=== PATIENT | female | born 1980 | race Caucasian/White ===

== ENCOUNTER 2020-03-10 08:09 | Outpatient (CLI) | payer BC, SELFPAY ==
[2020-03-10 09:26] LABS: Alanine Aminotransferase 26 U/L (14-59); Albumin Level 3.3 g/dL (3.4-5.0); Alkaline Phosphatase 84 U/L (46-116); Anion Gap 8 mmol/L (8-16); Aspartate Amino Transferase 18 U/L (15-37); Bilirubin,Total 0.3 mg/dL (0.00-1.00); Blood Urea Nitrogen 11 mg/dL (7-18); Calcium 8.4 mg/dL (8.5-10.1); Carbon Dioxide 27 mmol/L (21-32); Chloride 104 mmol/L (98-108); Cholesterol 199 mg/dL (0-200); Estimated Glomerular Filt Rate > 60; Glucose 96 mg/dL (70-99); HDL Direct 59 mg/dL (40-60); LDL Cholesterol Calculated 108 mg/dL (<130); Osmolality Calculated 287 mOsm/kg (285-295); Potassium 4.1 mmol/L (3.5-5.1); Sodium 139 mmol/L (136-145); Thyroid Stimulating Hormone 1.32 uIU/mL (0.36-3.74); Total Protein 7.1 g/dL (6.4-8.2); Triglycerides 162 mg/dL (0-150)
== END 2020-03-10 08:10 | disposition home or self-care (01) ==
LOC: CHSLAB 08:13
PROVIDERS: PCP Internal Medicine; Visit Provider Internal Medicine
DX: Z00.00 Encounter for general adult medical examination without abnormal findings (principal)
CPT/HCPCS: 36415; 80053; 80061; 84443

== ENCOUNTER 2021-03-11 07:13 | Outpatient (CLI) | payer BC, SELFPAY ==
[2021-03-11 13:31] LABS: Alanine Aminotransferase 27 U/L (14-59); Albumin Level 3.3 g/dL (3.4-5.0); Alkaline Phosphatase 81 U/L (46-116); Anion Gap 12 mmol/L (8-16); Aspartate Amino Transferase 16 U/L (15-37); Bilirubin,Total 0.2 mg/dL (0.00-1.00); Blood Urea Nitrogen 11 mg/dL (7-18); Calcium 8.2 mg/dL (8.5-10.1); Carbon Dioxide 23 mmol/L (21-32); Chloride 107 mmol/L (98-108); Cholesterol 176 mg/dL (0-200); Estimated Glomerular Filt Rate > 60; Glucose 94 mg/dL (70-99); HDL Direct 52 mg/dL (40-60); LDL Cholesterol Calculated 89 mg/dL (<130); Osmolality Calculated 293 mOsm/kg (285-295); Potassium 3.9 mmol/L (3.5-5.1); Sodium 142 mmol/L (136-145); Thyroid Stimulating Hormone 2.22 uIU/mL (0.36-3.74); Total Protein 6.7 g/dL (6.4-8.2); Triglycerides 177 mg/dL (0-150)
== END 2021-03-11 07:14 | disposition home or self-care (01) ==
LOC: CHSLAB 07:16
PROVIDERS: PCP Internal Medicine; Visit Provider Internal Medicine
DX: Z00.00 Encounter for general adult medical examination without abnormal findings (principal)
CPT/HCPCS: 36415; 80053; 80061; 84443

== ENCOUNTER 2022-03-06 06:59 | Outpatient (CLI) | payer BC, SELFPAY ==
[2022-03-06 07:38] LABS: Alanine Aminotransferase 24 U/L (14-59); Albumin Level 3.3 g/dL (3.4-5.0); Alkaline Phosphatase 72 U/L (46-116); Anion Gap 11 mmol/L (8-16); Aspartate Amino Transferase 13 U/L (15-37); Bilirubin,Total 0.2 mg/dL (0.00-1.00); Blood Urea Nitrogen 12 mg/dL (7-18); Calcium 8.6 mg/dL (8.5-10.1); Carbon Dioxide 25 mmol/L (21-32); Chloride 105 mmol/L (98-108); Cholesterol 207 mg/dL (0-200); Estimated Glomerular Filt Rate > 60; Glucose 97 mg/dL (70-99); HDL Direct 71 mg/dL (40-60); LDL Cholesterol Calculated 108 mg/dL (<130); Osmolality Calculated 291 mOsm/kg (285-295); Potassium 3.9 mmol/L (3.5-5.1); Sodium 141 mmol/L (136-145); Thyroid Stimulating Hormone 3.28 uIU/mL (0.36-3.74); Triglycerides 139 mg/dL (0-150)
== END 2022-03-06 07:00 | disposition home or self-care (01) ==
LOC: CHSLAB 07:02
PROVIDERS: PCP Internal Medicine; Visit Provider Internal Medicine
DX: Z00.00 Encounter for general adult medical examination without abnormal findings (principal)
CPT/HCPCS: 36415; 80053; 80061; 84443

== ENCOUNTER 2023-03-26 06:54 | Outpatient (CLI) | payer BC, SELFPAY ==
[2023-03-26 07:51] LABS: Alanine Aminotransferase 25 U/L (14-59); Albumin Level 3.2 g/dL (3.4-5.0); Alkaline Phosphatase 74 U/L (46-116); Anion Gap 10 mmol/L (8-16); Aspartate Amino Transferase 17 U/L (15-37); Bilirubin,Total 0.1 mg/dL (0.00-1.00); Blood Urea Nitrogen 10 mg/dL (7-18); Calcium 8.1 mg/dL (8.5-10.1); Carbon Dioxide 24 mmol/L (21-32); Chloride 106 mmol/L (98-108); Cholesterol 169 mg/dL (0-200); Estimated Glomerular Filt Rate > 60; Glucose 111 mg/dL (70-99); HDL Direct 68 mg/dL (40-60); Osmolality Calculated 290 mOsm/kg (285-295); Potassium 3.9 mmol/L (3.5-5.1); Sodium 140 mmol/L (136-145); Thyroid Stimulating Hormone 1.52 uIU/mL (0.36-3.74); Total Protein 6.6 g/dL (6.4-8.2)
[2023-03-26 08:10] LABS: LDL Cholesterol Calculated 81 mg/dL (<130); Triglycerides 99 mg/dL (0-150)
== END 2023-03-26 06:55 | disposition home or self-care (01) ==
LOC: CHSLAB 06:56
PROVIDERS: PCP Internal Medicine; Visit Provider Internal Medicine
DX: Z00.00 Encounter for general adult medical examination without abnormal findings (principal); E03.9 Hypothyroidism, unspecified
CPT/HCPCS: 36415; 80053; 80061; 84443

== ENCOUNTER 2024-04-07 07:28 | Outpatient (CLI) | payer BC, SELFPAY ==
[2024-04-08 10:18] LABS: Alanine Aminotransferase 17 U/L (6-35); Albumin Level 3.8 g/dL (3.5-5.1); Alkaline Phosphatase 69 U/L (38-126); Anion Gap 5 mmol/L (4-12); Aspartate Amino Transferase 22 U/L (14-36); Bilirubin,Total 0.2 mg/dL (0.2-1.3); Calcium 8.8 mg/dL (8.4-10.2); Carbon Dioxide 29 mmol/L (22-30); Chloride 103 mmol/L (98-107); Cholesterol 174 mg/dL (0-200); Estimated Glomerular Filt Rate > 60; Glucose 105 mg/dL (65-110); HDL Direct 60 mg/dL; LDL Cholesterol Calculated 77 mg/dL (<130); Sodium 137 mmol/L (137-145); Triglycerides 187 mg/dL (<150)
[2024-04-08 12:22] LABS: Blood Urea Nitrogen 8 mg/dL (7-17); Osmolality Calculated 282 mOsm/kg (285-295)
== END 2024-04-07 07:29 | disposition home or self-care (01) ==
PROVIDERS: PCP Internal Medicine; Visit Provider Internal Medicine
DX: Z00.00 Encounter for general adult medical examination without abnormal findings (principal); E03.9 Hypothyroidism, unspecified
CPT/HCPCS: 36415; 80053; 80061; 84443

== ENCOUNTER 2025-01-24 12:28 | Outpatient (CLI) | payer BC, SELFPAY ==
[2025-01-24 12:44] LABS: Add Urine Microscopic? YES; Appearance Urine Clear (Clear); Bilirubin Urine Negative (Negative); Blood Urine 1+ (Negative); Color Urine Light Yellow (Yellow); Glucose Urine UA Negative (Negative); Ketones Urine Negative (Negative); Leukocyte Esterase Ur 1+ (Negative); Nitrate Urine Negative (Negative); Protein Urine Negative (Negative); Urobilinogen Urine 0.2 mg/dL (0.2-1.0); pH Urine 6.5 (5.0-8.0)
[2025-01-24 12:49] LABS: Bacteria Urine Trace /hpf; Squamous Epithelial Cell Urine Rare /hpf (Few)
== END 2025-01-24 12:29 | disposition home or self-care (01) ==
PROVIDERS: PCP Obstetrics & Gynecology; Visit Provider Obstetrics & Gynecology
DX: R39.9 Unspecified symptoms and signs involving the genitourinary system (principal)
CPT/HCPCS: 81001; 87086; 87088

== ENCOUNTER 2025-04-20 07:01 | Outpatient (CLI) | payer BC, SELFPAY ==
--- OUTSIDE RECORDS SUMMARY | 2025-04-20 07:04 | XMS_ITS | Clinical Summary ---
Author Organization [facility] Address [address] [place] [address] Care Team Providers Care Case Loader Operator Name Role Phone Chad Ordonez MD Primary Care Provider Allergies Active Allergy Reactions Criticality Noted Date Comments Oxycodone Medications levothyroxine (SYNTHROID) 125 mcg tablet TAKE 1 TABLET BY MOUTH EVERY DAY 90 tablet 3 02/25/2024 Active PARoxetine (PAXIL) 20 mg tablet TAKE 1 TABLET BY MOUTH EVERY DAY 90 tablet 3 04/19/2024 Active desog-e.estradi oL/e.estradioL (Kariva, 28,) 0.15-0.02 mgx21 /0.01 mg x 5 per tablet Take 1 tablet by mouth daily 84 tablet 3 01/09/2025 Active phenazopyridine (PYRIDIUM) 200 mg tablet Take 1 tablet (200 mg total) by mouth 3 (three) times a day as needed for bladder spasms 10 tablet 01/24/2025 Active Active Problems Problem Noted Date Diagnosed Date Derangement of right knee 03/19/2021 Anxiety 03/11/2019 Family history of ovarian cancer 06/08/2018 Overview (06/08/2018): Mother Hypothyroidism 08/20/2012 Overview (11/06/2016): Hypothyroidism Encounters Date Type Department Care Team Description 02/10/2025 Orders Only [facility] Primary Care at [address] [place] [address] Chad Ordonez MD Screening mammogram for breast cancer (Primary Dx) 02/08/2025 Results Follow-Up [facility] [place] [address] [place] [address] Chad Ordonez MD Screening Mammogram Bilateral W Michell 02/07/2025 4:36 PM CDT - 02/07/2025 11:59 PM CDT Hospital Encounter [facility] [address] [place] [address] Screening mammogram, encounter for Discharge Disposition: Discharge to home or self care 02/01/2025 Results Follow-Up [facility] [address] [place] [address] Danny Maldonado MD Urinalysis reflex to microscopic, Urine culture Urine, bladder 01/24/2025 Telephone [facility] [address] [place] [address] Maite Spencer RN UTI Symptoms from Last 3 Months Immunizations Immunization Administration Dates Next Due Influenza, Quadrivalent, Yvette l Culture-based MDCK, Preservative Free, Antibiotic Free, Intramuscular 05/25/2019 Influenza, Quadrivalent, Spl it, Preservative Free, Intramuscular 05/13/2018 Influenza, Trivalent, IM (MDV) 05/10/2014,2011 Influenza, Trivalent, Preser vative Free, Intramuscular 05/26/2017,06/01/2015 Influenza, Unspecified 04/22/2024(Deferr ed: Patient Refused),10/03/2022(Deferred: Patient Refused),03/19/2021(Deferred: Patient Refused),05/15/2020 Surgical History Surgery Date Site/Laterality Comments KNEE SURGERY 1999 Rt knee surgery OTHER SURGICAL HISTORY 2013 : OTHER SURGICAL HISTORY : OTHER SURGICAL HISTORY 2004 Hx of abnormal pap: Had colpo, subsequent paps normal per pt. Hx of poss. Cryotherapy. Medical History Medical History Date Comments Hx Other Medical 2011 Torn ACL Hx Other Medical ; Outc ome: 39W0D week 6lb(s) 15 oz Female Hx Other Medical Hx Other Medical 2004 Hx of abnormal pap Family History Medical History Relation Name Comments Ovarian cancer Mother Relation Name Status Comments Mother Social History Tobacco Use Types Packs/Day Years Used Date Smoking Tobacco: Never Smokeless Tobacco: Never Tobacco Cessation:Counseling Given: Not Answered Alcohol Use Standard Drinks/Week Comments No 0 (1 standard drink = 0.6 oz pur e alcohol) AUDIT-C Answer Date Recorded Q1: How often do you have a drink containing alc ohol? 2-3 times a week 04/22/2024 Q2: How many drinks containi ng alcohol do you have on a typical day when you are drinking? 1 or 2 04/22/2024 Q3: How often do you have si x or more drinks on one occasion? 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 Gender Identity Not on file Sexual Orientation Not on file Obstetrics History Para Term AB IAB SAB Ectopic Multiple Livin g Live Births 2 2 2 2 2 Date Outcome GA Total Labor Labor/2nd/3rd Weight Sex Type Anes PTL Loraine A1 A5 Name Clin 1 Term 39w 0d F CS-Un spec Living 4 Term 39w 0d F CS-Un spec Living Last Filed Vital Signs Vital Sign Reading Time Taken Comments Blood Pressure 124/78 01/09/2025 8:48 AM CDT Pulse 77 04/22/2024 12:46 PM CDT Temperature 36.4 C (97.6 F) 04/22/2024 12:46 PM CDT Respiratory Rate 16 04/22/2024 12:46 PM CDT Oxygen Saturation 96% 04/22/2024 12:46 PM CDT Inhaled Oxygen Concentration - - Weight 99.8 kg (220 lb) 02/07/2025 4:41 PM CDT Height 167.6 cm (5' 6) 02/07/2025 4:41 PM CDT Body Mass Index 35.51 02/07/2025 4:41 PM CDT Plan of Treatment Health Maintenance Due Date Last Done Comments DTaP/Tdap/Td Vaccine (1 - Tdap) 1993 Varicella Vaccines (1 of 2 - 13+ 2-dose series) 1995 Hepatitis B Screening 2000 HPV Vaccines (1 - 3-dose SCDM series) 2009 Influenza Vaccine (#1) 2025 , 05/25/2019, 05/13/2018, Additional history exists Depression Screening 04/22/2025 04/22/2024, 11/30/2023, 03/30/2023, Additional history exists Cervical Cancer Screening 01/09/20262024, 11/30/2023, 11/19/2021, Additional history exists Regular Well Visit/Exam 18-64 01/09/2026 01/09/2025, 04/22/2024, 11/30/2023, Additional history exists Breast Cancer Screening-Mammogram 02/07/2026 02/07/2025 Hepatitis C Screening Completed 08/12/2013 Pneumococcal vaccine <65 Aged Out No longer eligible based on patient's age to complete this topic Procedures Procedure Name Priority Date/Time Associated Diagnosis Comments SCREENING MAMMOGRAM BILATERAL W MICHELL Schedule Routine, Read Routine (OP Routine) 02/07/2025 4:49 PM CDT Screening mammogram, encounter for URINE CULTURE Routine 01/26/2025 10:32 AM CDT UTI symptoms URINALYSIS AND REFLEX TO MICROSCOPIC Routine 01/24/2025 10:33 AM CDT UTI symptoms PAP AND HPV, REFLEX TO HPV GENOTYPES Routine 01/09/2025 9:08 AM CDT Well woman exam SERUM HEPATITIS C AB Routine 08/12/2013 10:15 AM GUEST SERVICES OFFICER from Last 3 Months or Most Recently Relevant to Health Maintenance Results * Screening Mammogram Bilateral W Michell (02/07/2025 4:49 PM CDT) Anatomical Region Laterality Modality Breast Bilateral Mammography Impressions 02/07/2025 5:21 PM CDT Bilateral No evidence of malignancy in either breast. OVERALL BI-RADS FINAL ASSESSMENT: 1 - Negative RECOMMENDATION: Recommend bilateral annual screening mammography. Narrative 02/07/2025 5:21 PM CDT EXAMINATION: Screening Mammogram Bilateral W Michell: 02/07/2025 COMPARISON: . TECHNIQUE: Mammography was performed with 2D and digital breast tomosynthesis (DBT) images. CAD was utilized. BREAST PARENCHYMAL COMPOSITION: The breasts are heterogeneously dense, which may obscure small masses. FINDINGS: Bilateral There is no suspicious mass, calcification, or architectural distortion in either breast. Self Screening Mammogram IMG MAMMO PROCEDURES Fi nal Result * Urine culture Urine, bladder (01/26/2025 10:32 AM CDT) Urine, bladder Danny Maldonado MD LAB MICROBIOLOGY - GENERAL ORDERABLES Final Result Performing Organization Address City/[facility]/ZIP Co de Phone Number EXTERNAL LAB * Urinalysis reflex to microscopic (01/24/2025 10:33 AM CDT) Urine Danny Maldonado MD LAB URINE ORDERABLES Final Result Performing Organization Address City/[facility]/ZIP Co de Phone Number EXTERNAL LAB * (ABNORMAL) Pap and HPV, reflex to HPV Genotypes (01/09/2025 9:08 AM CDT) CLINICAL INFORMATION: [facility] Comment:TWELL WOMAN EXAM LMP [facility] Comment:01-06-25 Previous Pap [facility] Comment:NONE GIVEN Prev. Bx [facility] Comment:NONE GIVEN SOURCE: [facility] Comment:Cervix, Endocervix Pap, specimen adequacy [facility] Comment: Satisfactory for evaluation. Endocervical/transformation zone component present. Pap, general categorization (A) [facility] Comment:Cytology Results: Ep ithelial Cell Abnormality HPV interp (A) [facility] Comment: Atypical Squamous Cells of Undetermined Significance (ASC-US) COMMENTS [facility] Comment: This Pap test has been evaluated with computer assisted technology. Suggest clinical correlation and follow-up as clinically appropriate [employer] [facility] Comment: TLS, CT(ASCP) CT Screening Location: [address] [address] Pathologist [facility] Comment: Junito Rashid M.D., Board Certified in Anatomic Pathology and Cytopathology. (electronic signature) Pathologist Release Date/Time: 01/13/2025 08:30AM Comment [facility] Comment: EXPLANATORY NOTE: The Pap is a screening test for cervical cancer. It is not a diagnostic test and is subject to false negative and false positive results. It is most reliable when a satisfactory sample, regularly obtained, is submitted with relevant clinical findings and history, and when the Pap result is evaluated along with historic and current clinical information. Human papillomavirus DNA, High Risk E6/E7 Not Detected NOT DETECTED [facility] Comment: Not Detected High Risk HPV types (16,18,31,33,35,39,45,51,52, 56,58,59,66,68) were not detected. Other HPV types which cause anogenital lesions may be present. The significance of the other types of HPV in malignant processes has not been established. Methodology: Real Time PCR Thin prep-Endocervica l 01/09/2025 9:08 AM CDT 01/10/2025 8:53 PM CDT Danny Maldonado MD LAB CYTOLOGY ORDERABLES Fi nal Result Performing Organization Address [facility]/ZIP Co de Phone Number [address] [phone] [address] * Serum Hepatitis C ab (08/12/2013 10:15 AM GUEST SERVICES OFFICER) HCV ab Negative Negative HISTORICAL RESULTS Serum 08/12/2013 10:1 5 AM GUEST SERVICES OFFICER Danny Maldonado MD LAB BLOOD ORDERABLES Final Result Performing Organization Address [facility]/ZIP Co de Phone Number HISTORICAL RESULTS from Last 3 Months or Most Recently Relevant to Health Maintenance Insurance BLUE ACC CHOICE OOS BLUE ACC CHOICE OOS Care Teams Case Loader Operator Relationship Specialty Start Date End Date Chad Ordonez MD PCP - General 10/31/16
--- OUTSIDE RECORDS SUMMARY | 2025-04-20 07:04 | XMS_ITS | Encounter Summary ---
Author Organization [facility] Address [address] [place] [address] Phone Care Team Providers Care Binder Cutter Hand Name Role Phone Chad Ordonez MD Primary Care Provider Encounter Details Date Type Department Care Team (Late st Contact Info) Description 10/31/2017 Orders Only [facility] ProviderLast MD [address] [place] [id number] Social History Tobacco Use Types Packs/Day Years Used Date Smoking Tobacco: Never Smokeless Tobacco: Never Alcohol Use Standard Drinks/Week Comments No 0 (1 standard drink = 0.6 oz pur e alcohol) Comments No Sex and Gender Information Value Date Recorded Sex Assigned at Not on file 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 Historical Provider LAB BLOOD ORDERABLES Svetlana l Result documented in this encounter Visit Diagnoses Not on filedocumented in this encounter Care Teams Binder Cutter Hand Relationship Specialty Start Date End Date Chad Ordonez MD PCP - General 10/31/16 documented as of this encounter
[2025-04-20 08:16] LABS: Alanine Aminotransferase 15 U/L (6-35); Albumin Level 3.9 g/dL (3.5-5.1); Alkaline Phosphatase 76 U/L (38-126); Anion Gap 9 mmol/L (4-12); Aspartate Amino Transferase 21 U/L (14-36); Bilirubin,Total 0.4 mg/dL (0.2-1.3); Blood Urea Nitrogen 10 mg/dL (7-17); Calcium 9.2 mg/dL (8.4-10.2); Carbon Dioxide 24 mmol/L (22-30); Chloride 107 mmol/L (98-107); Cholesterol 179 mg/dL (0-200); Estimated Glomerular Filt Rate > 60; Glucose 102 mg/dL (65-110); HDL Direct 61 mg/dL; Osmolality Calculated 289 mOsm/kg (285-295); Potassium 4.5 mmol/L (3.4-5.0); Sodium 140 mmol/L (137-145); Total Protein 7.4 g/dL (6.3-8.2); Triglycerides 147 mg/dL (<150)
[2025-04-20 08:46] LABS: Thyroid Stimulating Hormone 2.520 uIU/mL (0.465-4.680)
== END 2025-04-20 07:02 | disposition home or self-care (01) ==
LOC: CHSLAB 07:03
PROVIDERS: PCP Internal Medicine; Visit Provider Internal Medicine
DX: Z00.00 Encounter for general adult medical examination without abnormal findings (principal); E03.9 Hypothyroidism, unspecified
CPT/HCPCS: 36415; 80053; 80061; 84443